=== PATIENT | female | born 1935 | race Caucasian/White ===

== ENCOUNTER 2017-10-01 13:57 | Emergency (ER) | payer MEDICARE, BC ==
[2017-10-01 14:24] VITALS: BP 100/72
--- NOTE | 2017-10-01 15:05 | EDM.PDOC ---
ED HPI GENERAL MEDICAL PROBLEM - General Chief Complaint: Genitourinary Problem Stated Complaint: [id number] BLADDER INFECTION Time Seen by Provider: 10/01/17 14:52 Source of Information: Reports: Patient, RN, RN Notes Reviewed History Limitations: Reports: No Limitations - History of Present Illness INITIAL COMMENTS - FREE TEXT/NARRATIVE: Pt to Er with c/o low back pain x 1 week, burning, frequency, and urgency of urination. Patient states she had bladder cancer about 15 years ago and had a cysto performed 3-4 weeks ago. She denies fever, chills, N/V/D, CP, SOB. Onset: Gradual Bilateral Lower Back Pain Score (Numeric/FACES): 6 - Related Data Allergies Allergy/AdvReac Type Severity Reaction Status Date / Time pregabalin [From Lyrica] Allergy Abdominal Verified 10/01/17 14:20 Pain Home Meds: Home Meds Acetaminophen [Tylenol] 2 tab PO TID PRN 06/29/15 [History] Bimatoprost [LUMIGAN 0.01% Ophth Soln] 1 drop EYEBOTH DAILY 06/29/15 [History] Furosemide [Lasix] 20 mg PO DAILY PRN 06/29/15 [History] Gabapentin [Neurontin] 300 mg PO BID 06/29/15 [History] Hydrochlorothiazide 25 mg PO DAILY 06/29/15 [History] Levothyroxine [Synthroid] 50 mcg PO DAILY 06/29/15 [History] Metoprolol Succinate [Toprol XL] 100 mg PO DAILY 06/29/15 [History] Potassium Chloride 1 tab PO BID 06/29/15 [History] Sennosides [Senokot] 1 tab PO DAILY PRN 06/29/15 [History] Telmisartan [Micardis] 80 mg PO DAILY 06/29/15 [History] Apixaban [Eliquis] 2.5 mg PO BID #60 tablet 07/02/15 [Rx] Diltiazem [Cardizem CD] 180 mg PO DAILY #30 cap.cd 07/02/15 [Rx] Past Medical History HEENT History: Reports: Cataract, Glaucoma, Hard of Hearing Cardiovascular History: Reports: Afib, Hypertension Respiratory History: Reports: SOB Gastrointestinal History: Reports: Diverticulosis Genitourinary History: Reports: Other (See Below) Other Genitourinary History: hx of bladder CA, tumor removed 15 years ago with no reoccurance Musculoskeletal History: Reports: Arthritis, Back Pain, Chronic Neurological History: Reports: None Endocrine/Metabolic History: Reports: Hypothyroidism Oncologic (Cancer) History: Reports: Bladder Dermatologic History: Reports: Other (See Below) Other Dermatologic History: Pt states that she recently stopped one of her medications (unsure of name) for a generalized scattered rash - Infectious Disease History Infectious Disease History: Reports: Chicken Pox, Measles, Mumps - Past Surgical History HEENT Surgical History: Reports: Cataract Surgery Cardiovascular Surgical History: Reports: None Respiratory Surgical History: Reports: None GI Surgical History: Reports: Colonoscopy Female Surgical History: Reports: Other (See Below) Endocrine Surgical History: Reports: None Musculoskeletal Surgical History: Reports: Shoulder Replacement Social & Family History - Family History HEENT: Reports: Cataract, Glaucoma, Hearing Impairment Cardiac: Reports: CAD, [place] Respiratory: Reports: None GI: Reports: None : Reports: Other (See Below) Other Family History: States mother had kidney disease OBGYN: Reports: None Musculoskeletal: Reports: Arthritis Neurological: Reports: CVA Psychiatric: Reports: None Endocrine/Metabolic: Reports: None Hematologic: Reports: None Dermatologic: Reports: None Oncologic: Reports: Brain, Lung - Tobacco Use Smoking Status *Q: Never Smoker - Recreational Drug Use Recreational Drug Use: No ED ROS GENERAL - Review of Systems Review Of Systems: ROS reveals no pertinent complaints other than HPI. ED EXAM, RENAL/ - Physical Exam Exam: See Below Exam Limited By: No Limitations General Appearance: Alert, WD/WN, No Apparent Distress Eye Exam: Bilateral Eye: EOMI, Normal Inspection Ears: Normal External Exam, Hearing Grossly Normal Nose: Normal Inspection Throat/Mouth: Normal Inspection, Normal Voice, No Airway Compromise Head: Atraumatic, Normocephalic Neck: Normal Inspection, Supple, Non-Tender Respiratory/Chest: No Respiratory Distress, Lungs Clear, Normal Breath Sounds, No Accessory Muscle Use, Chest Non-Tender Cardiovascular: Normal Peripheral Pulses, No Edema, No Gallop, No JVD, No Murmur , No Rub, Irregularly Irregular GI/Abdominal: Normal Bowel Sounds, Soft, Non-Tender, No Organomegaly, No Distention, No Abnormal Bruit, No Mass, Pelvis Stable (Female) Exam: Deferred Rectal (Female) Exam: Deferred Back Exam: Normal Inspection, Full Range of Motion, CVA Tenderness (L). No: CVA Tenderness (R) Extremities: Normal Inspection, Normal Range of Motion, Non-Tender, No Pedal Edema, Normal Capillary Refill Neurological: Alert, Oriented, CN II-XII Intact, Normal Cognition, Normal Gait, Normal Reflexes, No Motor/Sensory Deficits Psychiatric: Normal Affect, Normal Mood Skin Exam: Warm, Dry, Intact, Normal Color, No Rash Lymphatic: No Adenopathy Course - Vital Signs Last Recorded V/S: Last Vital Signs Temp 97.1 F 10/01/17 14:23 Pulse 59 L 10/01/17 14:23 Resp 18 10/01/17 14:23 BP 100/72 10/01/17 14:23 Pulse Ox 98 10/01/17 14:23 - Orders/Labs/Meds Orders: Active Orders 24 hr Category Date Time Status CULTURE URINE [RM] Urgent Lab 10/01/17 14:10 Results Labs: Laboratory Tests 10/01/17 Range/Units 14:10 Urine Color Yellow (YELLOW) Urine Appearance Turbid (CLEAR) Urine pH 7.0 (5.0-9.0) Ur Specific [place] 1.015 (1.005-1.030) Urine Protein Trace H (NEGATIVE) Urine Glucose (UA) Negative (NEGATIVE) Urine Ketones Negative (NEGATIVE) Urine Occult Blood Moderate H (NEGATIVE) Urine Nitrite Positive H (NEGATIVE) Urine Bilirubin Negative (NEGATIVE) Urine Urobilinogen 0.2 (0.2-1.0) mg/dL Ur Leukocyte Esterase Large H (NEGATIVE) Urine RBC 30-40 H /HPF Urine WBC >100 H (0-5/HPF) /HPF Ur Epithelial Cells Moderate H /HPF Amorphous Sediment Moderate H (0/HPF) /HPF Urine Bacteria Many H (0-FEW/HPF) /HPF Urine Mucus Moderate H /LPF Departure - Departure Time of Disposition: 15:03 Disposition: Home, Self-Care 01 Condition: Fair Clinical Impression: UTI (urinary tract infection) Qualifiers: Urinary tract infection type: acute cystitis Hematuria presence: with hematuria Qualified Code(s): N30.01 - Acute cystitis with hematuria - Discharge Information *PRESCRIPTION DRUG MONITORING PROGRAM REVIEWED*: No *COPY OF PRESCRIPTION DRUG MONITORING REPORT IN PATIENT TASHA: No Instructions: Antibiotic Medicine, Adult, [id number], Urinary Tract Infection , Adult, [id number] Forms: ED Department Discharge Additional Instructions: RX: Pyridium, Macrobid Follow up with your primary care facility for a recheck of the urine to ensure the infection has cleared Drink plenty of water - My Orders Last 24 Hours: My Active Orders 10/01/17 14:10 CULTURE URINE [RM] Urgent - Assessment/Plan Last 24 Hours: My Active Orders 10/01/17 14:10 CULTURE URINE [RM] Urgent
== END 2017-10-01 15:15 | disposition home or self-care (01) ==
LOC: DL.ED 13:57
DX: N30.01 Acute cystitis with hematuria (principal); I10 Essential (primary) hypertension; E03.9 Hypothyroidism, unspecified; Z88.8 Allergy status to other drugs, medicaments and biological substances; Z79.899 Other long term (current) drug therapy
CPT/HCPCS: 81001; 87086; 87088; 87186; 99283

== ENCOUNTER 2018-06-17 05:08 | Emergency (ER) | payer MEDICARE, BC ==
[2018-06-17 05:19] VITALS: BP 145/77
--- NOTE | 2018-06-17 05:38 | EDM.PDOC ---
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 Staff report large amount of blood in sink and on floor of apartment. Patient on blood thiner for a-fib. Recently seeen by ENT for sinus problems. Denies hx of frequent nose bleeds. No recent URI sx. No active bleeding on arrival Ice pack to nasal bridge. Onset: Today - Related Data Allergies Allergy/AdvReac Type Severity Reaction Status Date / Time pregabalin [From Lyrica] Allergy Abdominal Verified 06/17/18 05:15 Pain Home Meds: Home Meds Acetaminophen [Tylenol] 2 tab PO TID PRN 06/29/15 [History] Bimatoprost [LUMIGAN 0.01% Ophth Soln] 1 drop EYEBOTH DAILY 06/29/15 [History] Furosemide [Lasix] 20 mg PO DAILY PRN 06/29/15 [History] Gabapentin [Neurontin] 300 mg PO BID 06/29/15 [History] Hydrochlorothiazide 25 mg PO DAILY 06/29/15 [History] Levothyroxine [Synthroid] 50 mcg PO DAILY 06/29/15 [History] Metoprolol Succinate [Toprol XL] 100 mg PO DAILY 06/29/15 [History] Potassium Chloride 1 tab PO BID 06/29/15 [History] Sennosides [Senokot] 1 tab PO DAILY PRN 06/29/15 [History] Telmisartan [Micardis] 80 mg PO DAILY 06/29/15 [History] Apixaban [Eliquis] 2.5 mg PO BID #60 tablet 07/02/15 [Rx] Diltiazem [Cardizem CD] 180 mg PO DAILY #30 cap.cd 07/02/15 [Rx] Past Medical History HEENT History: Reports: Cataract, Glaucoma, Hard of Hearing Cardiovascular History: Reports: Afib, Hypertension Respiratory History: Reports: SOB Gastrointestinal History: Reports: Diverticulosis Genitourinary History: Reports: Other (See Below) Other Genitourinary History: hx of bladder CA, tumor removed 15 years ago with no reoccurance Musculoskeletal History: Reports: Arthritis, Back Pain, Chronic Neurological History: Reports: None Endocrine/Metabolic History: Reports: Hypothyroidism Oncologic (Cancer) History: Reports: Bladder Dermatologic History: Reports: Other (See Below) Other Dermatologic History: Pt states that she recently stopped one of her medications (unsure of name) for a generalized scattered rash - Infectious Disease History Infectious Disease History: Reports: Chicken Pox, Measles, Mumps - Past Surgical History HEENT Surgical History: Reports: Cataract Surgery Cardiovascular Surgical History: Reports: None Respiratory Surgical History: Reports: None GI Surgical History: Reports: Colonoscopy Endocrine Surgical History: Reports: None Musculoskeletal Surgical History: Reports: Shoulder Replacement Social & Family History - Family History HEENT: Reports: Cataract, Glaucoma, Hearing Impairment Cardiac: Reports: CAD, [place] Respiratory: Reports: None GI: Reports: None : Reports: Other (See Below) Other Family History: States mother had kidney disease OBGYN: Reports: None Musculoskeletal: Reports: Arthritis Neurological: Reports: CVA Psychiatric: Reports: None Endocrine/Metabolic: Reports: None Hematologic: Reports: None Dermatologic: Reports: None Oncologic: Reports: Brain, Lung - Tobacco Use Smoking Status *Q: Unknown Ever Smoked - Caffeine Use Caffeine Use: Reports: Coffee - Recreational Drug Use Recreational Drug Use: No ED ROS ENT - Review of Systems Review Of Systems: ROS reveals no pertinent complaints other than HPI. ED EXAM, ENT - Physical Exam Exam: See Below Exam Limited By: No Limitations General Appearance: Alert, Anxious Eye Exam: Bilateral Eye: EOMI Ears: Normal External Exam, Hearing Loss Nose: Dried Blood (scant left anterior nare), Injected Turbinates (left). No: Active Bleeding Mouth/Throat: Normal Inspection, Normal Oropharynx Head: Atraumatic, Normocephalic Neck: Normal Inspection Respiratory/Chest: No Respiratory Distress, Lungs Clear Cardiovascular: Normal Peripheral Pulses, Irregularly Irregular Extremities: Normal Range of Motion Psychiatric: Normal Affect Skin: Warm, Dry, Intact, Normal Color Course - Vital Signs Last Recorded V/S: Last Vital Signs Temp 96.9 F 06/17/18 05:18 Pulse 81 06/17/18 05:18 Resp 18 06/17/18 05:18 BP 145/77 H 06/17/18 05:18 Pulse Ox 100 05/05/19 05:18 - Orders/Labs/Meds Orders: Active Orders 24 hr Category Date Time Status INR,PT,PROTHROMBIN TIME [COAG] Stat Lab 06/17/18 05:25 Received Labs: Laboratory Tests 06/17/18 06/17/18 Range/Units 05:25 05:25 WBC 5.7 (5.0-10.0) 10^3/uL RBC 3.56 L (4.2-5.4) 10^6/uL Hgb 12.5 (12.0-16.0) g/dL Hct 37.2 (37.0-47.0) % MCV 104.5 H D (80-100) fL MCH 35.1 H (27.0-34.0) pg MCHC 33.6 (33.0-35.0) g/dL Plt Count 134 L (150-450) 10^3/uL Neut % (Auto) 59.8 (42.2-75.2) % Lymph % (Auto) 26.0 (20.5-50.1) % [place] % (Auto) 11.2 H (2-8) % Eos % (Auto) 2.3 (1.0-3.0) % Baso % (Auto) 0.7 (0.0-1.0) % Sodium 138 (135-145) mmol/L Potassium 3.8 (3.6-5.0) mmol/L Chloride 103 (101-111) mmol/L Carbon Dioxide 21.0 (21.0-31.0) mmol/L Anion Gap 17.8 BUN 31 H (7-18) mg/dL Creatinine 1.4 H (0.6-1.3) mg/dL Est Cr Clr Drug Dosing 21.10 mL/min Estimated GFR (MDRD) 36 BUN/Creatinine Ratio 22.14 Glucose 112 H (74-105) mg/dL Calcium 9.5 (8.4-10.2) mg/dl Total Bilirubin 0.9 (0.2-1.0) mg/dL AST 47 H (10-42) IU/L ALT 20 (10-60) IU/L Alkaline Phosphatase 62 (42-121) IU/L Total Protein 6.8 (6.7-8.2) g/dl Albumin 3.7 (3.2-5.5) g/dl Globulin 3.1 Albumin/Globulin Ratio 1.19 - Re-Assessments/Exams Free Text/Narrative Re-Assessment/Exam: 06/17/18 06:31 No bleeding during ED visit. Up ambulatory no anterior or posterior bleeding Departure - Departure Time of Disposition: 06:32 Disposition: Home, Self-Care 01 Condition: Good Clinical Impression: Epistaxis not due to trauma, Chronic anticoagulation Atrial fibrillation Qualifiers: Atrial fibrillation type: chronic Qualified Code(s): I48.2 - Chronic atrial fibrillation - Discharge Information *PRESCRIPTION DRUG MONITORING PROGRAM REVIEWED*: Not Applicable *COPY OF PRESCRIPTION DRUG MONITORING REPORT IN PATIENT TASHA: Not Applicable Instructions: Nosebleed, [id number]-Sons Forms: ED Department Discharge Additional Instructions: humidifier continue current medications follow up in clinic this week if bleeding starts again first apply pressure, if does not stop urgent follow up and use life alert alarm if needed light activity today - My Orders Last 24 Hours: My Active Orders 06/17/18 05:25 INR,PT,PROTHROMBIN TIME [COAG] Stat - Assessment/Plan Last 24 Hours: My Active Orders 06/17/18 05:25 INR,PT,PROTHROMBIN TIME [COAG] Stat
[2018-06-17 05:54] LABS: ANION GAP 17.8
== END 2018-06-17 06:58 | disposition home or self-care (01) ==
LOC: DL.ED 05:08
DX: R04.0 Epistaxis (principal); I48.2 Chronic atrial fibrillation; Z79.01 Long term (current) use of anticoagulants; I10 Essential (primary) hypertension; Z79.899 Other long term (current) drug therapy; Z88.8 Allergy status to other drugs, medicaments and biological substances
CPT/HCPCS: 36415; 80053; 85025; 85610; 99283

== ENCOUNTER 2018-10-06 17:16 | Emergency (ER) | payer MEDICARE, BC ==
--- NOTE | 2018-10-06 19:03 | EDM.PDOC ---
ED HPI GENERAL MEDICAL PROBLEM - General Chief Complaint: Upper Extremity Injury/Pain Stated Complaint: INCOMING, FRACTURE L ARM, SWELLING AND BRUISING Time Seen by Provider: 10/06/18 19:03 Source of Information: Reports: Patient, Family, Old Records History Limitations: Reports: No Limitations - History of Present Illness INITIAL COMMENTS - FREE TEXT/NARRATIVE: pt s/p left upper humerus Fx last week had it splinted @ [facility]. family concerned about left hand swelling and discoloured. on exam the splint has slid down and needs to be redone higher. - Related Data Allergies Allergy/AdvReac Type Severity Reaction Status Date / Time pregabalin [From Lyrica] Allergy Abdominal Verified 06/17/18 05:15 Pain Home Meds: Home Meds Acetaminophen [Tylenol] 650 mg PO TID PRN 06/29/15 [History] Bimatoprost [LUMIGAN 0.01% Ophth Soln] 1 drop EYEBOTH DAILY 06/29/15 [History] Furosemide [Lasix] 40 mg PO DAILY PRN 06/29/15 [History] Gabapentin [Neurontin] 300 mg PO BID 06/29/15 [History] Hydrochlorothiazide 25 mg PO DAILY 06/29/15 [History] Levothyroxine [Synthroid] 50 mcg PO DAILY 06/29/15 [History] Metoprolol Succinate [Toprol XL] 100 mg PO DAILY 06/29/15 [History] Potassium Chloride 2 tab PO BID 06/29/15 [History] Sennosides [Senokot] 1 tab PO DAILY PRN 06/29/15 [History] Telmisartan [Micardis] 80 mg PO DAILY 06/29/15 [History] Apixaban [Eliquis] 2.5 mg PO BID #60 tablet 07/02/15 [Rx] Diltiazem [Cardizem CD] 180 mg PO DAILY #30 cap.cd 07/02/15 [Rx] Past Medical History HEENT History: Reports: Cataract, Glaucoma, Hard of Hearing Cardiovascular History: Reports: Afib, Hypertension Respiratory History: Reports: SOB Gastrointestinal History: Reports: Diverticulosis Genitourinary History: Reports: Other (See Below) Other Genitourinary History: hx of bladder CA, tumor removed 15 years ago with no reoccurance Musculoskeletal History: Reports: Arthritis, Back Pain, Chronic Neurological History: Reports: None Endocrine/Metabolic History: Reports: Hypothyroidism Oncologic (Cancer) History: Reports: Bladder Dermatologic History: Reports: Other (See Below) Other Dermatologic History: Pt states that she recently stopped one of her medications (unsure of name) for a generalized scattered rash - Infectious Disease History Infectious Disease History: Reports: Chicken Pox, Measles, Mumps - Past Surgical History HEENT Surgical History: Reports: Cataract Surgery Cardiovascular Surgical History: Reports: None Respiratory Surgical History: Reports: None GI Surgical History: Reports: Colonoscopy Endocrine Surgical History: Reports: None Musculoskeletal Surgical History: Reports: Shoulder Replacement Social & Family History - Family History HEENT: Reports: Cataract, Glaucoma, Hearing Impairment Cardiac: Reports: CAD, [place] Respiratory: Reports: None GI: Reports: None : Reports: Other (See Below) Other Family History: States mother had kidney disease OBGYN: Reports: None Musculoskeletal: Reports: Arthritis Neurological: Reports: CVA Psychiatric: Reports: None Endocrine/Metabolic: Reports: None Hematologic: Reports: None Dermatologic: Reports: None Oncologic: Reports: Brain, Lung - Tobacco Use Smoking Status *Q: Never Smoker Second Hand Smoke Exposure: No - Caffeine Use Caffeine Use: Reports: Coffee - Recreational Drug Use Recreational Drug Use: No Review of Systems - Review of Systems Review Of Systems: ROS reveals no pertinent complaints other than HPI. ED EXAM, GENERAL - Physical Exam Exam: See Below Exam Limited By: No Limitations General Appearance: Alert, WD/WN, No Apparent Distress, Other (pain on palpation ) Ears: Hearing Grossly Normal Throat/Mouth: Normal Voice, No Airway Compromise Head: Atraumatic Neck: Non-Tender, Full Range of Motion Respiratory/Chest: No Respiratory Distress Cardiovascular: Regular Rate, Rhythm GI/Abdominal: Soft, Non-Tender Extremities: Other (left hand ecchymotic swollen, pulse 2+, warm. left upper Fx above the splint and mobile.) Neurological: Alert, Normal Cognition, No Motor/Sensory Deficits Psychiatric: Normal Affect, Normal Mood Skin Exam: Warm, Dry, Normal Color Lymphatic: No Adenopathy ED TRAUMA EXTREMITY PROCEDURES - Splinting Left Upper Extremity Splint Site: left upper arm Pre-Procedure NV Status: Normal Post-Procedure NV Status: Normal Splint Material: Other (OCL) Splint Design: Posterior Applied & Form Fitted By: Provider Provider Post-Splint Application NV Check: NV Status Normal Complications: No Course - Vital Signs Last Recorded V/S: Last Vital Signs Temp 36.5 C 10/06/18 18:16 Pulse 75 10/06/18 18:16 Resp 19 10/06/18 18:16 BP 133/69 10/06/18 18:16 Pulse Ox 97 10/06/18 18:16 - Orders/Labs/Meds Labs: Laboratory Tests 10/06/18 10/06/18 Range/Units 19:35 19:35 WBC 7.4 (5.0-10.0) 10^3/uL RBC 2.84 L (4.2-5.4) 10^6/uL Hgb 9.4 L (12.0-16.0) g/dL Hct 29.4 L (37.0-47.0) % MCV 103.5 H (80-100) fL MCH 33.1 (27.0-34.0) pg MCHC 32.0 L (33.0-35.0) g/dL Plt Count 372 D (150-450) 10^3/uL Neut % (Auto) 69.7 (42.2-75.2) % Lymph % (Auto) 18.0 L (20.5-50.1) % [place] % (Auto) 11.9 H (2-8) % Eos % (Auto) 0.0 L (1.0-3.0) % Baso % (Auto) 0.4 (0.0-1.0) % Sodium 138 (135-145) mmol/L Potassium 3.6 (3.6-5.0) mmol/L Chloride 105 (101-111) mmol/L Carbon Dioxide 25.0 (21.0-31.0) mmol/L Anion Gap 11.6 BUN 14 (7-18) mg/dL Creatinine 0.9 (0.6-1.3) mg/dL Est Cr Clr Drug Dosing TNP Estimated GFR (MDRD) 60 BUN/Creatinine Ratio 15.55 Glucose 92 (74-105) mg/dL Calcium 9.1 (8.4-10.2) mg/dl Total Bilirubin 1.1 H (0.2-1.0) mg/dL AST 31 (10-42) IU/L ALT 18 (10-60) IU/L Alkaline Phosphatase 60 (42-121) IU/L Total Protein 6.0 L (6.7-8.2) g/dl Albumin 3.1 L (3.2-5.5) g/dl Globulin 2.9 Albumin/Globulin Ratio 1.07 Meds: Medications Discontinued Medications Generic Name Dose Route Start Last Admin Trade Name Jones PRN Reason Stop Dose Admin Acetaminophen 650 mg 10/06/18 22:06 10/06/18 22:16 Tylenol PO 10/06/18 22:07 650 mg NOW ONE Administration Fentanyl 50 mcg 10/06/18 19:13 10/06/18 19:19 Sublimaze IVPUSH 10/06/18 19:14 50 mcg ONETIME ONE Administration - Re-Assessments/Exams Free Text/Narrative Re-Assessment/Exam: 10/06/18 23:[address] Mckinney who consulted with Dr Jacobs who consulted with Dr Balderrama who states based upon the presenting data, patient doesn't fit criteria for admit. Dr Jacobs discussed situation with family. [facility] will come to p/u pt who is resting comfortably. Departure - Departure Time of Disposition: 23:19 Disposition: Home, Self-Care 01 Condition: Good Clinical Impression: Humerus shaft fracture Qualifiers: Encounter type: subsequent encounter Fracture type: closed Fracture morphology : comminuted Fracture alignment: nondisplaced Laterality: left Fracture healing : with routine healing Qualified Code(s): S42.355D - Nondisplaced comminuted fracture of shaft of humerus, left arm, subsequent encounter for fracture with routine healing - Discharge Information Forms: ED Department Discharge Additional Instructions: 1) follow up with family doctor 2) continue present treatment
[2018-10-06] MEDS ORDERED: fentaNYL 100 MCG/2 ML SDV IVPUSH ONE (19:13)
[2018-10-06 20:08] LABS: ANION GAP 11.6; CHLORIDE,CL 105 mmol/L (101-111); SODIUM,NA 138 mmol/L (135-145)
[2018-10-06] MEDS ORDERED: Acetaminophen 325 MG Tab PO ONE (22:06)
[2018-10-07 01:16] VITALS: BP 134/77
== END 2018-10-06 23:37 | disposition home or self-care (01) ==
LOC: DL.ED 17:16
DX: S42.355D Nondisplaced comminuted fracture of shaft of humerus, left arm, subsequent encounter for fracture with routine healing (principal); I10 Essential (primary) hypertension; I48.91 Unspecified atrial fibrillation; Z79.899 Other long term (current) drug therapy; Z88.8 Allergy status to other drugs, medicaments and biological substances; X58.XXXD Exposure to other specified factors, subsequent encounter
CPT/HCPCS: 29105; 36415; 73060; 80053; 85025; 96374; 99283; 99284; A9270; J3010

== ENCOUNTER 2019-02-02 21:32 | Emergency (ER) | payer MEDICARE, BC ==
--- NOTE | 2019-02-02 21:40 | EDM.PDOC ---
ED HPI GENERAL MEDICAL PROBLEM - General Chief Complaint: Lower Extremity Injury/Pain Stated Complaint: FELL-LEFT HIP PAIN Time Seen by Provider: 02/02/19 21:38 Source of Information: Reports: Patient, EMS History Limitations: Reports: No Limitations - History of Present Illness INITIAL COMMENTS - FREE TEXT/NARRATIVE: pt states was moving her lunch tray when turned and lost balance and fell onto left hip. denies head/neck pain-injury. denies CP/SOB. EMS found pt in bed c/o left hip pain. - Related Data Allergies Allergy/AdvReac Type Severity Reaction Status Date / Time pregabalin [From Lyrica] Allergy Abdominal Verified 02/02/19 21:43 Pain Home Meds: Home Meds Acetaminophen [Tylenol] 650 mg PO TID PRN 06/29/15 [History] Bimatoprost [LUMIGAN 0.01% Ophth Soln] 1 drop EYEBOTH DAILY 06/29/15 [History] Furosemide [Lasix] 40 mg PO DAILY PRN 06/29/15 [History] Levothyroxine [Synthroid] 50 mcg PO DAILY 06/29/15 [History] Metoprolol Succinate [Toprol XL] 100 mg PO DAILY 06/29/15 [History] Potassium Chloride 2 tab PO BID 06/29/15 [History] Sennosides [Senokot] 1 tab PO DAILY PRN 06/29/15 [History] Telmisartan [Micardis] 80 mg PO DAILY 06/29/15 [History] Diltiazem [Cardizem CD] 180 mg PO DAILY #30 cap.cd 07/02/15 [Rx] Aspirin [Ecotrin EC] 81 mg PO DAILY 02/02/19 [History] Calcitonin,[place],Synthetic [Calcitonin-[place]] 1 spray NISREEN DAILY 02/02/19 [ History] DULoxetine HCl [Cymbalta] 60 mg PO DAILY 02/02/19 [History] Past Medical History HEENT History: Reports: Cataract, Glaucoma, Hard of Hearing Cardiovascular History: Reports: Afib, Hypertension Respiratory History: Reports: SOB Gastrointestinal History: Reports: Diverticulosis Genitourinary History: Reports: Other (See Below) Other Genitourinary History: hx of bladder CA, tumor removed 15 years ago with no reoccurance Musculoskeletal History: Reports: Arthritis, Back Pain, Chronic Neurological History: Reports: None Endocrine/Metabolic History: Reports: Hypothyroidism Oncologic (Cancer) History: Reports: Bladder Dermatologic History: Reports: Other (See Below) Other Dermatologic History: Pt states that she recently stopped one of her medications (unsure of name) for a generalized scattered rash - Infectious Disease History Infectious Disease History: Reports: Chicken Pox, Measles, Mumps - Past Surgical History HEENT Surgical History: Reports: Cataract Surgery Cardiovascular Surgical History: Reports: None Respiratory Surgical History: Reports: None GI Surgical History: Reports: Colonoscopy Endocrine Surgical History: Reports: None Musculoskeletal Surgical History: Reports: Shoulder Replacement Social & Family History - Family History HEENT: Reports: Cataract, Glaucoma, Hearing Impairment Cardiac: Reports: CAD, [place] Respiratory: Reports: None GI: Reports: None : Reports: Other (See Below) Other Family History: States mother had kidney disease OBGYN: Reports: None Musculoskeletal: Reports: Arthritis Neurological: Reports: CVA Psychiatric: Reports: None Endocrine/Metabolic: Reports: None Hematologic: Reports: None Dermatologic: Reports: None Oncologic: Reports: Brain, Lung - Caffeine Use Caffeine Use: Reports: Coffee Review of Systems - Review of Systems Review Of Systems: Comprehensive ROS is negative, except as noted in HPI. ED EXAM, GENERAL - Physical Exam Exam: See Below Exam Limited By: No Limitations General Appearance: Alert, WD/WN, Mild Distress, Other (left hip discomfort) Ears: Hearing Grossly Normal Throat/Mouth: Normal Voice, No Airway Compromise Head: Atraumatic Neck: Non-Tender, Full Range of Motion Respiratory/Chest: No Respiratory Distress Cardiovascular: Regular Rate, Rhythm GI/Abdominal: Soft, Non-Tender Extremities: Other (left hip pain) Neurological: Alert, Oriented, Normal Cognition, No Motor/Sensory Deficits Psychiatric: Normal Affect, Normal Mood Skin Exam: Warm, Dry, Normal Color Lymphatic: No Adenopathy Course - Vital Signs Last Recorded V/S: Last Vital Signs Temp 36.6 C 02/02/19 22:06 Pulse 84 02/02/19 22:06 Resp 19 02/02/19 22:06 BP 142/92 H 02/02/19 22:06 Pulse Ox 94 L 02/02/19 22:06 - Orders/Labs/Meds Orders: Active Orders 24 hr Category Date Time Status UA RFX RHYS AND CULT IF INDIC [URIN] Stat Lab 02/02/19 21:37 Ordered Labs: Laboratory Tests 02/02/19 02/02/19 Range/Units 21:41 21:41 WBC 8.3 (5.0-10.0) 10^3/uL RBC 3.50 L (4.2-5.4) 10^6/uL Hgb 11.2 L D (12.0-16.0) g/dL Hct 33.7 L (37.0-47.0) % MCV 96.3 D (80-100) fL MCH 32.0 (27.0-34.0) pg MCHC 33.2 (33.0-35.0) g/dL Plt Count 243 D (150-450) 10^3/uL Neut % (Auto) 67.0 (42.2-75.2) % Lymph % (Auto) 18.6 L (20.5-50.1) % Garrett % (Auto) 9.8 H (2-8) % Eos % (Auto) 4.0 H (1.0-3.0) % Baso % (Auto) 0.6 (0.0-1.0) % Sodium 140 (135-145) mmol/L Potassium 3.4 L (3.6-5.0) mmol/L Chloride 105 (101-111) mmol/L Carbon Dioxide 26.0 (21.0-31.0) mmol/L Anion Gap 12.4 BUN 26 H (7-18) mg/dL Creatinine 0.8 (0.6-1.3) mg/dL Est Cr Clr Drug Dosing TNP Estimated GFR (MDRD) > 60 BUN/Creatinine Ratio 32.50 Glucose 112 H (74-105) mg/dL Calcium 9.3 (8.4-10.2) mg/dl Total Bilirubin 0.7 (0.2-1.0) mg/dL AST 24 (10-42) IU/L ALT 17 (10-60) IU/L Alkaline Phosphatase 120 (42-121) IU/L Total Protein 6.9 (6.7-8.2) g/dl Albumin 3.8 (3.2-5.5) g/dl Globulin 3.1 Albumin/Globulin Ratio 1.23 - Re-Assessments/Exams Free Text/Narrative Re-Assessment/Exam: 02/02/19 22:[address] Cinthia Castrejon @ kindly accepted pt. Departure - Departure Time of Disposition: 22:22 Disposition: DC/Tfer to Acute Hospital 02 Condition: Good Clinical Impression: Fracture of neck of femur, hip - Discharge Information Forms: Interfacility Transfer EMTALA Sepsis Event Note - Focused Exam Vital Signs: Vital Signs Temp Pulse Resp BP Pulse Ox 02/02/19 22:06 36.6 C 84 19 142/92 H 94 L Date Exam was Performed: 02/02/19 Time Exam was Performed: : - My Orders Last 24 Hours: My Active Orders 02/02/19 21:37 UA RFX RHYS AND CULT IF INDIC [URIN] Stat - Assessment/Plan Last 24 Hours: My Active Orders 02/02/19 21:37 UA RFX RHYS AND CULT IF INDIC [URIN] Stat
[2019-02-02 22:08] LABS: ANION GAP 12.4; CHLORIDE,CL 105 mmol/L (101-111); SODIUM,NA 140 mmol/L (135-145)
[2019-02-02 22:20] VITALS: BP 142/92; PULSE 84
== END 2019-02-02 22:46 ==
LOC: DL.ED 21:32
DX: S72.002A Fracture of unspecified part of neck of left femur, initial encounter for closed fracture (principal); I10 Essential (primary) hypertension; I48.91 Unspecified atrial fibrillation; M19.90 Unspecified osteoarthritis, unspecified site; E03.9 Hypothyroidism, unspecified; Z88.8 Allergy status to other drugs, medicaments and biological substances; Z79.899 Other long term (current) drug therapy; Z79.82 Long term (current) use of aspirin; W18.30XA Fall on same level, unspecified, initial encounter
CPT/HCPCS: 36415; 72192; 80053; 85025; 99285-25

== ENCOUNTER 2019-12-06 16:24 | Emergency (ER) | payer MEDICARE, BC ==
--- NOTE | 2019-12-06 16:47 | EDM.PDOC ---
ED HPI GENERAL MEDICAL PROBLEM - General Time Seen by Provider: 12/06/19 16:42 Source of Information: Reports: Long Term Records, Provider History Limitations: Reports: Other (dementia) - History of Present Illness INITIAL COMMENTS - FREE TEXT/NARRATIVE: sent from clinic with negative DVT for pt with right lower leg pain and pallor and cool past few days. PMD request r/o arterial clot. - Related Data Allergies Allergy/AdvReac Type Severity Reaction Status Date / Time pregabalin [From Lyrica] Allergy Abdominal Verified 12/06/19 16:58 Pain Home Meds: Home Meds Acetaminophen [Tylenol] 650 mg PO TID PRN 06/29/15 [History] Bimatoprost [LUMIGAN 0.01% Ophth Soln] 1 drop EYEBOTH DAILY 06/29/15 [History] Furosemide [Lasix] 40 mg PO DAILY PRN 06/29/15 [History] Levothyroxine [Synthroid] 50 mcg PO DAILY 06/29/15 [History] Metoprolol Succinate [Toprol XL] 100 mg PO DAILY 06/29/15 [History] Potassium Chloride 2 tab PO BID 06/29/15 [History] Sennosides [Senokot] 1 tab PO DAILY PRN 06/29/15 [History] Telmisartan [Micardis] 80 mg PO DAILY 06/29/15 [History] Diltiazem [Cardizem CD] 180 mg PO DAILY #30 cap.cd 07/02/15 [Rx] Aspirin [Ecotrin EC] 81 mg PO DAILY 02/02/19 [History] Calcitonin,[place],Synthetic [Calcitonin-[place]] 1 spray NISREEN DAILY 02/02/19 [History] DULoxetine HCl [Cymbalta] 60 mg PO DAILY 02/02/19 [History] Past Medical History HEENT History: Reports: Cataract, Glaucoma, Hard of Hearing Cardiovascular History: Reports: Afib, Hypertension Respiratory History: Reports: SOB Gastrointestinal History: Reports: Diverticulosis Genitourinary History: Reports: Other (See Below) Other Genitourinary History: hx of bladder CA, tumor removed 15 years ago with no reoccurance [employer] History: Reports: Musculoskeletal History: Reports: Arthritis, Back Pain, Chronic Neurological History: Reports: None Psychiatric History: Reports: Dementia, Depression Endocrine/Metabolic History: Reports: Hypothyroidism Hematologic History: Reports: None Immunologic History: Reports: None Oncologic (Cancer) History: Reports: Bladder Dermatologic History: Reports: Other (See Below) Other Dermatologic History: Pt states that she recently stopped one of her medications (unsure of name) for a generalized scattered rash - Infectious Disease History Infectious Disease History: Reports: Chicken Pox, Measles, Mumps - Past Surgical History HEENT Surgical History: Reports: Cataract Surgery Cardiovascular Surgical History: Reports: None Respiratory Surgical History: Reports: None GI Surgical History: Reports: Colonoscopy Endocrine Surgical History: Reports: None Musculoskeletal Surgical History: Reports: Shoulder Replacement Social & Family History - Family History Family Medical History: Noncontributory HEENT: Reports: Cataract, Glaucoma, Hearing Impairment Cardiac: Reports: CAD, [place] Respiratory: Reports: None GI: Reports: None : Reports: Other (See Below) Other Family History: States mother had kidney disease OBGYN: Reports: None Musculoskeletal: Reports: Arthritis Neurological: Reports: CVA Psychiatric: Reports: None Endocrine/Metabolic: Reports: None Hematologic: Reports: None Dermatologic: Reports: None Oncologic: Reports: Brain, Lung - Caffeine Use Caffeine Use: Reports: Coffee ED ROS GENERAL - Review of Systems Review Of Systems: Comprehensive ROS is negative, except as noted in HPI. ED EXAM, GENERAL - Physical Exam Exam: See Below Exam Limited By: No Limitations General Appearance: Alert, WD/WN, Mild Distress, Other (discomfort) Ears: Hearing Grossly Normal Throat/Mouth: Normal Voice, No Airway Compromise Head: Atraumatic Neck: Non-Tender, Full Range of Motion Respiratory/Chest: No Respiratory Distress Cardiovascular: Regular Rate, Rhythm GI/Abdominal: Soft, Non-Tender (Female) Exam: Deferred Rectal (Female) Exam: Deferred Extremities: Pallor, Other (no grossly palpable pedal pulse, tender to bear weight, somne elicited discomfort on palpation) Neurological: Alert, No Motor/Sensory Deficits, Other (dementia) Psychiatric: Normal Affect, Normal Mood Skin Exam: Warm, Dry, Normal Color Lymphatic: No Adenopathy Course - Vital Signs Last Recorded V/S: Last Vital Signs Temp 36.1 C 12/06/19 16:53 Pulse 54 L 12/06/19 16:53 Resp 16 12/06/19 16:53 BP 103/55 L 12/06/19 16:53 Pulse Ox 100 12/06/19 16:53 - Re-Assessments/Exams Free Text/Narrative Re-Assessment/Exam: 12/06/19 17:[address] mckinney [facility] who kindly accepted pt for r/o arterial v ascular obstruction. Departure - Departure Time of Disposition: 17:05 Disposition: DC/Tfer to Acute Hospital 02 Condition: Fair Clinical Impression: Arterial obstructive disease - Discharge Information Additional Instructions: patient transferred to [facility] ER for r/o arterial obstruction. Sepsis Event Note (ED) - Focused Exam Vital Signs: Vital Signs Temp Pulse Resp BP Pulse Ox 12/06/19 16:53 36.1 C 54 L 16 103/55 L 100
[2019-12-06 16:58] VITALS: BP 103/55; PULSE 54
== END 2019-12-06 17:24 ==
LOC: DL.ED 16:24
DX: I70.90 Unspecified atherosclerosis (principal); F03.90 Unspecified dementia, unspecified severity, without behavioral disturbance, psychotic disturbance, mood disturbance, and anxiety; I10 Essential (primary) hypertension; I48.91 Unspecified atrial fibrillation; F32.9 Major depressive disorder, single episode, unspecified; E03.9 Hypothyroidism, unspecified; Z88.8 Allergy status to other drugs, medicaments and biological substances; Z79.82 Long term (current) use of aspirin; Z79.899 Other long term (current) drug therapy
CPT/HCPCS: 99284

== ENCOUNTER 2019-12-11 14:21 | Emergency (ER) | payer MEDICARE, BC ==
--- NOTE | 2019-12-11 14:41 | CR ---
EXAMINATION: Chest 1V Frontal SEX: Female AGE: 84 years CLINICAL HISTORY: 84-year-old female with altered mental status. Interpretation: Dorsolumbar scoliosis. Total right shoulder replacement. External cardiac cath technician leads and oxygen mask. Ectasia dorsal aorta. Mild left ventriculomegaly. No pulmonary vascular congestion, cephalization of flow, alveolar edema or dependent pleural effusion. No lung mass or hilar lymphadenopathy. No focal lobar pneumonic consolidation, atelectasis or collapse. No pneumothorax or pneumomediastinum. Midline tracheobronchial airway unremarkable. CONCLUSION: No acute cardiopulmonary abnormality.
[2019-12-11 15:12] LABS: ANION GAP 12.1 mEq/L (7-13); CHLORIDE,CL 102 mmol/L (98-107); SODIUM,NA 140 mmol/L (136-145)
[2019-12-11] MEDS ORDERED: Sodium Chloride 0.9% 1,000 ML IV ONE (16:08)
[2019-12-11] MEDS ORDERED: Piperacillin/Tazobactam 3.375 GM in Sodium Chloride 0.9% 100 ML IV ONE (16:44)
[2019-12-11 16:45] VITALS: BP 77/26; PULSE 52
[2019-12-11 16:56] LABS: BASE EXCESS ARTERIAL 3 mmol/L ((-2)-(+3)); BICARBONATE,ARTERIAL 26.8 mmol/L (22-26); O2 DELIVERY DEVICE NON REBR MASK; PCO2 ARTERIAL 40 mmHg (35-45); PO2 ARTERIAL 314 mmHg (70-100)
[2019-12-11 16:58] LABS: O2 SATURATION ARTERIAL 100 % (95-100)
--- NOTE | 2019-12-11 17:22 | US ---
PROCEDURE INFORMATION: Exam: US Duplex Lower Extremity Veins, Bilateral Exam date and time: 12/11/2019 4:36 PM Age: 84 years old Clinical indication: Abnormal findings; Abnormal lab test; Elevated d-dimer; Prior surgery; Surgery date: 3-7 days post-operative; Surgery type: Prev surgery on lower ext arteries; Additional info: No pulse left foot, ddimer 1400 TECHNIQUE: Imaging protocol: Real-time duplex ultrasound of the extremities with 2-D batista scale, color Doppler flow and spectral waveform analysis with image documentation. Complete exam focused on the bilateral lower extremity veins. COMPARISON: No relevant prior studies available. FINDINGS: Right deep veins: Unremarkable. The common femoral, femoral, proximal profunda femoral and popliteal veins are patent without thrombus. Normal Doppler waveforms. Normal compressibility and/or augmentation response. Right superficial veins: Saphenofemoral junction is patent without thrombus. Left deep veins: Unremarkable. The common femoral, femoral, proximal profunda femoral and popliteal veins are patent without thrombus. Normal Doppler waveforms. Normal compressibility and/or augmentation response. Left superficial veins: Saphenofemoral junction is patent without thrombus. Soft tissues: Unremarkable. IMPRESSION: No evidence of left deep vein thrombosis. No evidence of right deep vein thrombosis.
--- NOTE | 2019-12-11 17:40 | EDM.PDOC ---
ED HPI GENERAL MEDICAL PROBLEM - General Chief Complaint: Neuro Symptoms/Deficits Stated Complaint: STROKE Time Seen by Provider: 12/11/19 14:21 Source of Information: Reports: Patient, EMS, EMS Notes Reviewed, Family, [facility] Records, RN, RN Notes Reviewed History Limitations: Reports: Altered Mental Status - History of Present Illness INITIAL COMMENTS - FREE TEXT/NARRATIVE: Presents to ER per [place] ambulance [facility] from the intermediate with reported altered mental status. Patient reportedly not acting appropriately, blood pressure was low, oxygen saturation low. Last week patient had a lower extremity arteriogram at [facility] in [place] performed by Dr. Espinal. 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 No procedure done on the left at that time. She was put on Eliquis and Plavix after the procedure. She also has a history of atrial fibrillation. 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 Upon arrival to the ER, patient is alert and looks at you, but does not follow command. Will not squeeze hands or do intentional movements. Patient does appear to be moving all extremities purposefully. When patient does speak, she asked where her hearing aid was, speech was clear and understandable. On arrival of the EMS at the intermediate, the patient's O2 saturation was anywhere from 70 to 80%, patient was put on a nonrebreather. While on the nonrebreather here patient is 99 to 100%. Nonrebreather taken off and nasal cannula put on, patient drops oxygen saturation to 68 to 69%. Upon assessment, no pedal pulse felt in the left foot, left lower leg is slightly larger than the right. No pitting edema, redness, or warmth. The left foot is cool to the touch. There is significant bruising to the left groin area. Onset: Today, Gradual - Related Data Allergies Allergy/AdvReac Type Severity Reaction Status Date / Time pregabalin [From Lyrica] Allergy Abdominal Verified 12/06/19 16:58 Pain Home Meds: Home Meds Acetaminophen [Tylenol] 650 mg PO TID PRN 06/29/15 [History] Bimatoprost [LUMIGAN 0.01% Ophth Soln] 1 drop EYEBOTH DAILY 06/29/15 [History] Furosemide [Lasix] 40 mg PO DAILY PRN 06/29/15 [History] Levothyroxine [Synthroid] 50 mcg PO DAILY 06/29/15 [History] Metoprolol Succinate [Toprol XL] 100 mg PO DAILY 06/29/15 [History] Potassium Chloride 2 tab PO BID 06/29/15 [History] Sennosides [Senokot] 1 tab PO DAILY PRN 06/29/15 [History] Telmisartan [Micardis] 80 mg PO DAILY 06/29/15 [History] Diltiazem [Cardizem CD] 180 mg PO DAILY #30 cap.cd 07/02/15 [Rx] Aspirin [Ecotrin EC] 81 mg PO DAILY 02/02/19 [History] Calcitonin,[place],Synthetic [Calcitonin-[place]] 1 spray NISREEN DAILY 02/02/19 [History] DULoxetine HCl [Cymbalta] 60 mg PO DAILY 02/02/19 [History] Past Medical History HEENT History: Reports: Cataract, Glaucoma, Hard of Hearing Cardiovascular History: Reports: Afib, Hypertension Respiratory History: Reports: SOB Gastrointestinal History: Reports: Diverticulosis Genitourinary History: Reports: Other (See Below) Other Genitourinary History: hx of bladder CA, tumor removed 15 years ago with no reoccurance 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: Musculoskeletal History: Reports: Arthritis, Back Pain, Chronic Neurological History: Reports: None Psychiatric History: Reports: Dementia, Depression Endocrine/Metabolic History: Reports: Hypothyroidism Hematologic History: Reports: None Immunologic History: Reports: None Oncologic (Cancer) History: Reports: Bladder Dermatologic History: Reports: Other (See Below) Other Dermatologic History: Pt states that she recently stopped one of her medications (unsure of name) for a generalized scattered rash - Infectious Disease History Infectious Disease History: Reports: Chicken Pox, Measles, Mumps - Past Surgical History HEENT Surgical History: Reports: Cataract Surgery Cardiovascular Surgical History: Reports: None Respiratory Surgical History: Reports: None GI Surgical History: Reports: Colonoscopy Endocrine Surgical History: Reports: None Musculoskeletal Surgical History: Reports: Shoulder Replacement Social & Family History - Family History Family Medical History: Noncontributory HEENT: Reports: Cataract, Glaucoma, Hearing Impairment Cardiac: Reports: CAD, [place] Respiratory: Reports: None GI: Reports: None : Reports: Other (See Below) Other Family History: States mother had kidney disease OBGYN: Reports: None Musculoskeletal: Reports: Arthritis Neurological: Reports: CVA Psychiatric: Reports: None Endocrine/Metabolic: Reports: None Hematologic: Reports: None Dermatologic: Reports: None Oncologic: Reports: Brain, Lung - Caffeine Use Caffeine Use: Reports: Coffee ED ROS GENERAL - Review of Systems Review Of Systems: Comprehensive ROS is negative, except as noted in HPI. ED EXAM, NEURO - Physical Exam Exam: See Below Exam Limited By: Altered Mental Status General Appearance: No Apparent Distress, Lethargic Eye Exam: Bilateral Eye: EOMI, PERRL (3, sluggish) Ears: Normal External Exam, Hearing Loss (Hearing aid, left ear) Nose: Normal Inspection Throat/Mouth: Normal Inspection, Normal Voice, No Airway Compromise Head Exam: Atraumatic, Normocephalic Neck: Normal Inspection, Supple, Non-Tender, Full Range of Motion Respiratory/Chest: No Respiratory Distress, No Accessory Muscle Use, Chest Non- Tender, Decreased Breath Sounds Cardiovascular: No Edema, Bradycardia, Irregularly Irregular GI/Abdominal: Normal Bowel Sounds, Soft, Non-Tender (Female) Exam: Deferred Rectal (Female) Exam: Black Stool, Heme + Stool Neurological: Alert Back Exam: Normal Inspection, Decreased Range of Motion Extremities: Normal Inspection, Normal Range of Motion, Non-Tender, No Pedal Edema, Normal Capillary Refill Psychiatric: Other (Initially not following command, just staring at screen writer. By the time of departure from the ER, the patient was talking frequently, and NOT happy about being sent to [place]. Patient speaking appropriately, but does ask repetitive questions, and does not seem to be comprehending the answer given.) Skin Exam: Warm, Dry, Intact, Ecchymosis (Left groin, RLQ), Wound/Incision (wound to left groin area) Course - Vital Signs Last Recorded V/S: Last Vital Signs Temp 96.2 F L 12/11/19 14:07 Pulse 52 L 12/11/19 14:07 Resp 16 12/11/19 14:07 BP 77/26 L 12/11/19 14:07 Pulse Ox 100 12/11/19 14:07 - Orders/Labs/Meds Orders: Active Orders 24 hr Category Date Time Status Insert Urinary Catheter [OM.PC] Q24H Care 12/11/19 17:15 Ordered CULTURE BLOOD [BC] Stat Lab 12/11/19 16:25 Results CULTURE URINE [RM] Stat Lab 12/11/19 17:22 Results Blood Culture x2 Reflex Set [OM.PC] Stat Oth 12/11/19 16:11 Ordered Labs: Laboratory Tests 12/11/19 12/11/19 12/11/19 Range/Units 14:28 14:28 14:28 WBC 13.5 H (5.0-10.0) 10^3/uL RBC 3.11 L (4.2-5.4) 10^6/uL Hgb 9.9 L (12.0-16.0) g/dL Hct 30.0 L (37.0-47.0) % MCV 96.5 (80-100) fL MCH 31.8 (27.0-34.0) pg MCHC 33.0 (33.0-35.0) g/dL Plt Count 185 (150-450) 10^3/uL Neut % (Auto) 75.9 H (42.2-75.2) % Lymph % (Auto) 13.7 L (20.5-50.1) % [place] % (Auto) 8.2 H (2-8) % Eos % (Auto) 1.9 (1.0-3.0) % Baso % (Auto) 0.3 (0.0-1.0) % Add Manual Diff Yes Neutrophils % (Manual) 66 (42-75) % Band Neutrophils % 2 % Lymphocytes % (Manual) 16 L (20-50) % Monocytes % (Manual) 12 H (2-8) % Eosinophils % (Manual) 3 (1-3) % Basophils % (Manual) 1 PT 10.4 (9.0-12.0) SEC INR 1.1 (0.9-1.2) D-Dimer, Quantitative 1400 H (0-400) ng/mL ABG pH (7.35-7.45) ABG pCO2 (35-45) mmHg ABG pO2 (70-100) mmHg ABG HCO3 (22-26) mmol/L ABG O2 Saturation (95-100) % ABG Base Excess ((-2)-(+3)) mmol/L Matt Test O2 Delivery Device Sodium 140 (136-145) mmol/L Potassium 4.1 (3.5-5.1) mmol/L Chloride 102 (98-107) mmol/L Carbon Dioxide 30 (21-32) mmol/L Anion Gap 12.1 (7-13) mEq/L BUN 44 H (7-18) mg/dL Creatinine 1.65 H (0.55-1.02) mg/dL Est Cr Clr Drug Dosing TNP Estimated GFR (MDRD) 29 BUN/Creatinine Ratio 26.7 (No establ ref range) Glucose 136 H (74-99) mg/dL Lactic Acid (0.4-2.0) mmol/L Calcium 9.7 (8.5-10.1) mg/dL Total Bilirubin 0.5 (0.2-1.0) mg/dL AST 37 (15-37) U/L ALT 21 (14-59) U/L Alkaline Phosphatase 63 (46-116) U/L Troponin I (0.000-0.056) ng/mL Total Protein 6.7 (6.4-8.2) g/dL Albumin 3.1 L (3.4-5.0) g/dL Globulin 3.6 Albumin/Globulin Ratio 0.86 Urine Color (YELLOW) Urine Appearance (CLEAR) Urine pH (5.0-9.0) Ur Specific [place] (1.005-1.030) Urine Protein (NEGATIVE) Urine Glucose (UA) (NEGATIVE) Urine Ketones (NEGATIVE) Urine Occult Blood (NEGATIVE) Urine Nitrite (NEGATIVE) Urine Bilirubin (NEGATIVE) Urine Urobilinogen (0.2-1.0) mg/dL Ur Leukocyte Esterase (NEGATIVE) Urine RBC /HPF Urine WBC (0-5/HPF) /HPF Ur Epithelial Cells (NOT SEEN) /HPF Amorphous Sediment (NOT SEEN) /HPF Urine Bacteria (0-FEW/HPF) /HPF Urine Mucus (NOT SEEN) /LPF 12/11/19 12/11/19 12/11/19 Range/Units 14:28 16:25 16:55 WBC (5.0-10.0) 10^3/uL RBC (4.2-5.4) 10^6/uL Hgb (12.0-16.0) g/dL Hct (37.0-47.0) % MCV (80-100) fL MCH (27.0-34.0) pg MCHC (33.0-35.0) g/dL Plt Count (150-450) 10^3/uL Neut % (Auto) (42.2-75.2) % Lymph % (Auto) (20.5-50.1) % [place] % (Auto) (2-8) % Eos % (Auto) (1.0-3.0) % Baso % (Auto) (0.0-1.0) % Add Manual Diff Neutrophils % (Manual) (42-75) % Band Neutrophils % % Lymphocytes % (Manual) (20-50) % Monocytes % (Manual) (2-8) % Eosinophils % (Manual) (1-3) % Basophils % (Manual) PT (9.0-12.0) SEC INR (0.9-1.2) D-Dimer, Quantitative (0-400) ng/mL ABG pH 7.44 (7.35-7.45) ABG pCO2 40 (35-45) mmHg ABG pO2 314 H (70-100) mmHg ABG HCO3 26.8 H (22-26) mmol/L ABG O2 Saturation 100 (95-100) % ABG Base Excess 3 ((-2)-(+3)) mmol/L Matt Test O2 Delivery Device Non rebr mask Sodium (136-145) mmol/L Potassium (3.5-5.1) mmol/L Chloride (98-107) mmol/L Carbon Dioxide (21-32) mmol/L Anion Gap (7-13) mEq/L BUN (7-18) mg/dL Creatinine (0.55-1.02) mg/dL Est Cr Clr Drug Dosing Estimated GFR (MDRD) BUN/Creatinine Ratio (No establ ref range) Glucose (74-99) mg/dL Lactic Acid 1.7 (0.4-2.0) mmol/L Calcium (8.5-10.1) mg/dL Total Bilirubin (0.2-1.0) mg/dL AST (15-37) U/L ALT (14-59) U/L Alkaline Phosphatase (46-116) U/L Troponin I < 0.017 (0.000-0.056) ng/mL Total Protein (6.4-8.2) g/dL Albumin (3.4-5.0) g/dL Globulin Albumin/Globulin Ratio Urine Color (YELLOW) Urine Appearance (CLEAR) Urine pH (5.0-9.0) Ur Specific [place] (1.005-1.030) Urine Protein (NEGATIVE) Urine Glucose (UA) (NEGATIVE) Urine Ketones (NEGATIVE) Urine Occult Blood (NEGATIVE) Urine Nitrite (NEGATIVE) Urine Bilirubin (NEGATIVE) Urine Urobilinogen (0.2-1.0) mg/dL Ur Leukocyte Esterase (NEGATIVE) Urine RBC /HPF Urine WBC (0-5/HPF) /HPF Ur Epithelial Cells (NOT SEEN) /HPF Amorphous Sediment (NOT SEEN) /HPF Urine Bacteria (0-FEW/HPF) /HPF Urine Mucus (NOT SEEN) /LPF 12/11/19 Range/Units 17:22 WBC (5.0-10.0) 10^3/uL RBC (4.2-5.4) 10^6/uL Hgb (12.0-16.0) g/dL Hct (37.0-47.0) % MCV (80-100) fL MCH (27.0-34.0) pg MCHC (33.0-35.0) g/dL Plt Count (150-450) 10^3/uL Neut % (Auto) (42.2-75.2) % Lymph % (Auto) (20.5-50.1) % [place] % (Auto) (2-8) % Eos % (Auto) (1.0-3.0) % Baso % (Auto) (0.0-1.0) % Add Manual Diff Neutrophils % (Manual) (42-75) % Band Neutrophils % % Lymphocytes % (Manual) (20-50) % Monocytes % (Manual) (2-8) % Eosinophils % (Manual) (1-3) % Basophils % (Manual) PT (9.0-12.0) SEC INR (0.9-1.2) D-Dimer, Quantitative (0-400) ng/mL ABG pH (7.35-7.45) ABG pCO2 (35-45) mmHg ABG pO2 (70-100) mmHg ABG HCO3 (22-26) mmol/L ABG O2 Saturation (95-100) % ABG Base Excess ((-2)-(+3)) mmol/L Matt Test O2 Delivery Device Sodium (136-145) mmol/L Potassium (3.5-5.1) mmol/L Chloride (98-107) mmol/L Carbon Dioxide (21-32) mmol/L Anion Gap (7-13) mEq/L BUN (7-18) mg/dL Creatinine (0.55-1.02) mg/dL Est Cr Clr Drug Dosing Estimated GFR (MDRD) BUN/Creatinine Ratio (No establ ref range) Glucose (74-99) mg/dL Lactic Acid (0.4-2.0) mmol/L Calcium (8.5-10.1) mg/dL Total Bilirubin (0.2-1.0) mg/dL AST (15-37) U/L ALT (14-59) U/L Alkaline Phosphatase (46-116) U/L Troponin I (0.000-0.056) ng/mL Total Protein (6.4-8.2) g/dL Albumin (3.4-5.0) g/dL Globulin Albumin/Globulin Ratio Urine Color Yellow (YELLOW) Urine Appearance Clear (CLEAR) Urine pH 8.5 (5.0-9.0) Ur Specific [place] 1.020 (1.005-1.030) Urine Protein Negative (NEGATIVE) Urine Glucose (UA) Negative (NEGATIVE) Urine Ketones Negative (NEGATIVE) Urine Occult Blood Trace-intact H (NEGATIVE) Urine Nitrite Negative (NEGATIVE) Urine Bilirubin Negative (NEGATIVE) Urine Urobilinogen 0.2 (0.2-1.0) mg/dL Ur Leukocyte Esterase Moderate H (NEGATIVE) Urine RBC 0-5 /HPF Urine WBC 20-30 H (0-5/HPF) /HPF Ur Epithelial Cells Few (NOT SEEN) /HPF Amorphous Sediment Few (NOT SEEN) /HPF Urine Bacteria Many H (0-FEW/HPF) /HPF Urine Mucus Rare (NOT SEEN) /LPF Meds: Medications Discontinued Medications Generic Name Dose Route Start Last Admin Trade Name Freq PRN Reason Stop Dose Admin Sodium Chloride 1,000 mls @ 999 mls/hr 12/11/19 16:08 12/11/19 16:20 Normal Saline IV 12/11/19 17:08 999 mls/hr .BOLUS ONE Administration Piperacillin Sod/Tazobactam 100 mls @ 200 mls/hr 12/11/19 16:44 12/11/19 17:14 Sod 3.375 gm/ Sodium Chloride IV 12/11/19 17:13 200 mls/hr ONETIME ONE Administration - Radiology Interpretation Free Text/Narrative:: Chest xray: No acute cardiopulmonary abnormality Head CT wo contrast: 1. Severe but symmetric cerebral cortical atrophy, underlying mirror image normal ventricles 2. Physiologic midline pineal/falx and symmetric choroid plexus calcification 3. Uniformly thick bony calvarium. Symmetric clear pneumatization of the paranasal and mastoid sinuses 4. No indication of brain contusion or abnormal extracerebral/intracranial epidural or subdural hematoma 5. No sign of acute intracerebral, intraventricular, subarachnoid bleed 6. Extensive multi-infarct ischemic disease involving periventricular white matter both hemispheres as noted on previous exam i.e. unchanged. No new areas of cerebral edema or encephalomalacia Conclusion: Chronic multi-infarct ischemic disease and atrophy. No acute intracranial bleed Venous Doppler US: PROCEDURE INFORMATION: Exam: US Duplex Lower Extremity Veins, Bilateral Exam date and time: 12/11/2019 4:36 PM Age: 84 years old Clinical indication: Abnormal findings; Abnormal lab test; Elevated d-dimer; Prior surgery; Surgery date: 3-7 days post-operative; Surgery type: Prev surgery on lower ext arteries; Additional info: No pulse left foot, ddimer 1400 TECHNIQUE: Imaging protocol: Real-time duplex ultrasound of the extremities with 2-D batista scale, color Doppler flow and spectral waveform analysis with image documentation. Complete exam focused on the bilateral lower extremity veins. COMPARISON: No relevant prior studies available. FINDINGS: Right deep veins: Unremarkable. The common femoral, femoral, proximal profunda femoral and popliteal veins are patent without thrombus. Normal Doppler waveforms. Normal compressibility and/or augmentation response. Right superficial veins: Saphenofemoral junction is patent without thrombus. Left deep veins: Unremarkable. The common femoral, femoral, proximal profunda femoral and popliteal veins are patent without thrombus. Normal Doppler waveforms. Normal compressibility and/or augmentation response. Left superficial veins: Saphenofemoral junction is patent without thrombus. Soft tissues: Unremarkable. IMPRESSION: No evidence of left deep vein thrombosis. No evidence of right deep vein thrombosis. Thank you for allowing us to participate in the care of your patient. Dictated and Authenticated by: Luzma Sheffield MD 12/11/2019 5:21 PM Central Time ([place] & [place]) - Re-Assessments/Exams Free Text/Narrative Re-Assessment/Exam: 12/12/19 10:21 Discussed patient case with Dr. Pimentel, Neurology at [facility], who states she does not feel this is neurological, but more metabolic in nature. Patient case also discussed with Dr. Espinal who performed the vascular procedure last week. He states he also feels the pulselessness in the left foot is from lack of volume and dehydration. He also states he feels this is metabolic in nature. Discussed patient case with Dr. Jacobs who agreed to accept the patient for transfer to [facility]. Discussed case with patient's son and emergency contact, Tenzin. He states understanding of the procedures and transfer to and gives permission for the patient to be transferred. Departure - Departure Time of Disposition: 17:50 Disposition: DC/Tfer to [facility] 02 Condition: Fair Clinical Impression: Acute encephalopathy, Absent pedal pulses - Discharge Information *PRESCRIPTION DRUG MONITORING PROGRAM REVIEWED*: No *COPY OF PRESCRIPTION DRUG MONITORING REPORT IN PATIENT TASHA: No Forms: ED Department Discharge, Interfacility Transfer EMTALA Sepsis Event Note (ED) - Evaluation Sepsis Screening Result: No Definite Risk - My Orders Last 24 Hours: My Active Orders 12/11/19 16:11 Blood Culture x2 Reflex Set [OM.PC] Stat 12/11/19 16:25 CULTURE BLOOD [BC] Stat 12/11/19 17:15 Insert Urinary Catheter [OM.PC] Q24H 12/11/19 17:22 CULTURE URINE [RM] Stat - Assessment/Plan Last 24 Hours: My Active Orders 12/11/19 16:11 Blood Culture x2 Reflex Set [OM.PC] Stat 12/11/19 16:25 CULTURE BLOOD [BC] Stat 12/11/19 17:15 Insert Urinary Catheter [OM.PC] Q24H 12/11/19 17:22 CULTURE URINE [RM] Stat
--- NOTE | 2019-12-11 17:48 | CT ---
EXAMINATION: Head wo Cont SEX: Female AGE: 84 years CLINICAL HISTORY: 84-year-old female with altered mental status was undergone revascularization procedure right lower extremity in the past week. (STROKE CODE) Comparison head CT September 2018. Scan technique: Volume acquisition of data emergency unenhanced CT scan of the head and brain obtained with the patient lying supine on the Siemens multislice scanner [facility]. All data archived in the PACS system for storage, reformatting axial/sagittal/coronal planes and study (bone/brain windows). INTERPRETATION: Abnormal (multi-infarct ischemic disease) but unchanged since September 2018. 1. Severe but symmetric cerebral cortical atrophy (underlying mirror-image normal ventricles). 2. Physiologic midline pineal/falx and symmetric choroid plexus calcification. 3. Uniformly thick bony calvarium. Symmetric clear pneumatization of the paranasal and mastoid sinuses. 4. No indication of brain contusion or abnormal extracerebral/intra-cranial epidural or subdural hematoma. 5. *No sign of acute intracerebral, intraventricular or subarachnoid bleed. 6. Extensive multi-infarct ischemic disease involving periventricular white matter both hemispheres as noted on previous exam i.e. unchanged. No new areas of cerebral edema or encephalomalacia. CONCLUSION: Chronic multi-infarct ischemic disease and atrophy. No acute intracranial bleed. CONCLUSION:
== END 2019-12-11 17:50 ==
LOC: DL.ED 14:21
DX: G93.40 Encephalopathy, unspecified (principal); I10 Essential (primary) hypertension; I48.91 Unspecified atrial fibrillation; M19.90 Unspecified osteoarthritis, unspecified site; F32.9 Major depressive disorder, single episode, unspecified; E03.9 Hypothyroidism, unspecified; Z79.82 Long term (current) use of aspirin; Z79.899 Other long term (current) drug therapy; Z85.51 Personal history of malignant neoplasm of bladder; Z88.6 Allergy status to analgesic agent
CPT/HCPCS: 36415; 36600; 70450; 71045; 80053; 81001; 82272; 82803; 83605; 84484; 85025; 85379; 85610; 87040; 87086; 87088; 87186; 93005; 93970; 96365; 99285; J2543; J7030; J7050